=== PATIENT | male | born 1980 | race Caucasian/White ===

== ENCOUNTER 2022-01-02 19:32 | Emergency (ER) | payer OTHER ==
[~2022-01-02] VITALS: Ht 165.1 cm; Wt 81.7 kg
[~2022-01-02 19:32] MED LIST: AMOX500 PO; ANTOXYBENA OT; Amox Tr-K Clv1 EAC2 PO; Benadryl 50 mg50 MG PO; CLON.1 PO; CODACE30; Cleocin HCl150 MG PO; DIPATR PO; DIPH25 PO; HYDACE5 PO; HYDPAM25; MEDICAL MARIJUANA INH; METH40; METO10 PO; NAPR220 PO; NAPR500 PO; NEOPOLHCSU OT; Naprosyn500 MG PO; OXYACE5T PO; OXYC5 PO; PENVK500 PO; PHENY100ER PO; Phenytoin Sodi100 MG PO; Prednisone20 MG PO; ROLAIDS PO; RXHYDACE PO; RXLORA1 PO; SKIEMOTO TOP; SULTRIDS PO; Ultram50 MG PO; Veetids 500500 MG PO
[2022-01-02] MEDS ORDERED: SILVER SULFADIA TOP (23:02)
== END 2022-01-03 00:51 | disposition home or self-care (01) ==
LOC: ER 19:32
DX: T23.261A Burn of second degree of back of right hand, initial encounter (principal); T31.0 Burns involving less than 10% of body surface; X08.8XXA Exposure to other specified smoke, fire and flames, initial encounter; Z79.899 Other long term (current) drug therapy
CPT/HCPCS: A9270

== ENCOUNTER 2022-01-06 01:49 | Day surgery (SDC) | payer OTHER ==
[~2022-01-06 01:49] MED LIST changes: +SILVER SULFADIA TOP
== END 2022-01-06 22:49 | disposition home or self-care (01) ==
LOC: WOUND 01:49
DX: T23.251A Burn of second degree of right palm, initial encounter (principal); T23.261A Burn of second degree of back of right hand, initial encounter; G40.909 Epilepsy, unspecified, not intractable, without status epilepticus
CPT/HCPCS: A9270; G0463

== ENCOUNTER 2022-01-13 00:44 | Day surgery (SDC) | payer OTHER | END 2022-01-13 23:03 | disposition home or self-care (01) | LOC: WOUND 00:44 | DX: T23.261A Burn of second degree of back of right hand, initial encounter (principal); T23.251A Burn of second degree of right palm, initial encounter; V29.99XA Rider (driver) (passenger) of other motorcycle injured in unspecified traffic accident, initial encounter | CPT/HCPCS: A9270; G0463 ==